=== PATIENT | female | born 1955 | race Caucasian/White ===

== ENCOUNTER 2017-07-22 18:47 | Emergency (ER) | payer OTHER ==
[~2017-07-22] VITALS: Ht 160 cm; Wt 90.7 kg
[2017-07-22] MEDS ORDERED: ZANTAC 150MG T150 MG PO (18:56)
[2017-07-22] MEDS ORDERED: ETODOLAC 400 M400 M1 PO (18:56)
[2017-07-22] MEDS ORDERED: OMEPRAZOLE40 MG PO (18:56)
[2017-07-22 19:08] LABS: ABSOLUTE BASOPHILS 0.1 thou/uL (0.0-0.2); ABSOLUTE EOSINOPHILS 0.2 thou/uL (0.0-0.7); ABSOLUTE LYMPHOCYTES 1.9 thou/uL (0.8-5.3); ABSOLUTE MONOCYTES 0.4 thou/uL (0.0-1.2); ABSOLUTE NEUTROPHILS 7.7 thou/uL (1.6-8.1); BASOPHILS 0.9 %; EOSINOPHILS 1.9 %; HEMATOCRIT 39.8 % (37.0-47.0); LYMPHOCYTES 18.7 %; MCH 27.7 pg (26.0-34.0); MCHC 32.7 g/dL (28.0-37.0); MCV 84.6 fL (80.0-100.0); MONOCYTES 3.6 %; MPV 8.3 fl. (7.2-11.1); NUCLEATED RBCS 0 /100WBC; PLATELET COUNT* 354 thou/uL (150-400); POLYS 74.9 %; RDW-CV 14.6 % (10.5-14.5); WBC 10.3 thou/uL (4.0-11.0)
[2017-07-22 19:17] LABS: ANION GAP 9 mmol/L (7-16); BUN 11 mg/dL (7-18); CALCIUM 8.9 mg/dL (8.5-10.1); CHLORIDE 106 mmol/L (98-107); CO2 30 mmol/L (21-32); CREATININE 0.7 mg/dL (0.6-1.3); GLUCOSE 98 mg/dL (70-99); POTASSIUM 3.6 mmol/L (3.5-5.1); SODIUM 145 mmol/L (136-145)
[2017-07-22 19:20] LABS: APTT 28.7 Seconds (25.0-31.3); PROTIME 9.9 Seconds (9.20-11.50)
[2017-07-22 19:37] LABS: ALBUMIN 3.4 g/dL (3.4-5.0); ALKALINE PHOSPHATASE 97 U/L (46-116); CK-MB MASS < 0.5 ng/mL (<0.5-3.6); LIPASE 137 U/L (73-393); MAGNESIUM 2.1 mg/dL (1.8-2.4); NT-PRO BRAIN NAT PEPTIDE 43 pg/mL (<300); SGOT 19 U/L (15-37); SGPT 29 U/L (30-65); TOTAL BILIRUBIN 0.3 mg/dL (<0.1-1.0); TOTAL PROTEIN 7.5 g/dL (6.4-8.2); TROPONIN-I LEVEL <0.06 ng/mL (<0.06)
[2017-07-22 19:45] VITALS: BP 144/78
--- NOTE | 2017-07-23 11:27 | EKG ---
[place] [address] ELECTROCARDIOGRAM REPORT Name: JOHN HILTON Room: [facility]#: [id number] Admission: 07/22/17 Attend Phys: Discharge: 07/22/17 Date of : 55 Report #: [id number] THIS REPORT FOR: //name// [facility] ED Test Date: 2017-07-22 Test Time: 18:51:46 Pat Name: JOHN HILTON Department: Room: Gender: F [employer] Agent: VENU : 1955 Requested By: Tono Watt Order Number: [id number] MD: Jaun Strange Measurements Intervals [place] Rate: 96 P: 18 FL: 147 QRS: -17 QRSD: 86 T: -3 QT: 338 QTc: 428 Interpretive Statements Sinus rhythm Left ventricular hypertrophy Inferior infarct, old No previous ECG available for comparison Electronically Signed On 07-23-2017 11:27:45 [employer] SOFTWARE [employer]NAGER by Jaun Strange [email or web address] <ELECTRONICALLY SIGNED> By: Jaun Strange MD, [facility] 07/23/17 1127 [id number] 185 Jaun Strange MD, FACC /EPI
== END 2017-07-22 19:45 | disposition home or self-care (01) ==
LOC: M.ERS 18:47
PROVIDERS: Family Medicine
DX: I10 Essential (primary) hypertension (principal); K21.9 Gastro-esophageal reflux disease without esophagitis; Z90.710 Acquired absence of both cervix and uterus